=== PATIENT | male | born 1940 | race Two or more races ===

== ENCOUNTER 2020-04-10 06:21 | Day surgery (SDC) | payer OTHER ==
[~2020-04-10 06:21] MED LIST: LIPITOR40 MG PO; LITHIUM CARBON450 MG PO; LOSARTAN POTASS50 MG PO; SENSIPAR30 MG PO; SYNTHROID100 MCG PO; ZOLOFT100 MG PO
[2020-04-10] MEDS ORDERED: ULTRAM50 MG PO (12:15)
== END 2020-04-10 14:00 | disposition home or self-care (01) ==
LOC: CIR.AMB 06:21
PROVIDERS: ATTEND Surgery
DX: R15.9 Full incontinence of feces (principal); Z20.828 Contact with and (suspected) exposure to other viral communicable diseases
CPT/HCPCS: 64590; 64581; 95971; C1778; L8679